=== PATIENT | male | born 1965 | race Caucasian/White ===

== ENCOUNTER 2017-05-28 10:44 | Emergency (ER) | payer OTHER ==
[~2017-05-28] VITALS: Ht 175.3 cm; Wt 62.1 kg
[2017-05-28 10:47] VITALS: Ht 175.3 cm; Wt 62.1 kg
--- NOTE | 2017-05-28 11:17 | EMERGENCY ROOM VISIT NOTE ---
History Report prepared by Yaw: Christine Mike Under the Supervision of: Dr. Theo Nathan M.D. First contact with patient: 10:56 Chief Complaint: LACERATION/CUT (SUT/DERMABOND) Stated Complaint: LACERATION ON HEAD FROM FALL Nursing Triage Summary: pt c/o standing and legs "gave out". Fell and hit back of head. denies loc. 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 Pt states that he got up to go to the bathroom this morning and his legs gave out and he fell back and hit his head. Per security at the [facility], the patient was able to get up and walk after the episode without difficulty. Positive head injury. Negative LOC. 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 A total of ten systems were reviewed and were otherwise negative. Past Medical & Surgical Medical Problems: (1) No Known Active Medical Problems Family History No pertinent family history stated. Social History Smoking Status: Current Every Day Smoker Housing Status: other (usp) Occupation Status: other (usp) Current/Historical Medications Scheduled Trazodone Hcl (Trazodone), 150 MG PO HS Allergies Coded Allergies: Penicillins (Verified Allergy, Unknown, unk, 05/28/17) Physical Exam Vital Signs Date Time Temp Pulse Resp B/P (MAP) Pulse Ox O2 Delivery O2 Flow Rate FiO2 05/28/17 12:38 36.8 63 18 102/72 97 Room Air 05/28/17 10:47 36.7 101 17 120/77 96 Room Air Physical Exam GENERAL: Awake, alert, well-appearing, NAD HENT: 5 lluvia to the posterior scalp, simple laceration. Edentulous. EYES: Normal conjunctiva. Sclera non-icteric. NECK: Supple. No nuchal rigidity. FROM. No midline c-spine TTP. RESPIRATORY: CTAB, no rhonchi, wheezing, crackles CARDIAC: RRR, no MRG ABDOMEN: Soft, NTND, BS+ MSK: No chest wall TTP, no LE edema. No pain to the chest, abdomen, back, or extremities. NEURO: GCS 15, CN 2-12 intact, moves all 4s on command SKIN: No rash or jaundice noted. Medical Decision & Procedures ER Provider Diagnostic Interpretation: Radiology results as stated below per my review and radiologist interpretation: HEAD WITHOUT CONTRAST (CT) Comparison: None. Findings: The paranasal sinuses and mastoid air cells are clear. The calvarium and skull base are intact. The ventricles and sulci are within normal limits. There is no mass, hematoma, midline shift, or acute infarct. Impression: No acute intracranial abnormality. The above report was generated using voice recognition software. It may contain grammatical, syntax or spelling errors. Electronically signed by: Arsalan Raines M.D. 05/28/2017 12:22 PM Dictated Date/Time: 05/28/2017 12:19 PM CERVICAL SPINE W/O FINDINGS: Reversal of the cervical curvature. Evidence for prior fusion of C4-C7. Moderate degenerative disc change throughout. C1-C2 complex is intact. Posterior arch is intact at all levels. There are mild degenerative changes of the posterior facets. IMPRESSION: Postoperative and degenerative change with all findings felt to be nonacute. No acute process of the cervical spine is appreciated. The above report was generated using voice recognition software. It may contain grammatical, syntax or spelling errors. Electronically signed by: Arsalan Raines M.D. 05/28/2017 12:28 PM Dictated Date/Time: 05/28/2017 12:27 PM ECG Indication: other (fall) Rate (beats per minute): 79 Rhythm: normal sinus Findings: T-wave inversion (single isolated in AVL), other (normal intervals normal axis) ED Course 1056: The patient was evaluated in room C3. A complete history and physical exam was performed. 1203: I reevaluated and updated the patient. 1248: I reevaluated the patient. Discussed results and discharge instructions: He verbalized understanding and agreement. The patient is ready for discharge. 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 Differential diagnosis: Etiologies such as fracture, dislocation, intra-abdominal, pneumothorax, intrathoracic , intracranial, neurologic, as well as other traumatic pathologies were entertained. Patient was seen and evaluated the bedside. Patient did have a [facility] in [facility]. Patient denies any syncope. Patient states that he got up and then his knees buckled and he fell to the ground. Patient did strike the posterior aspect of his head. Patient did have a laceration status post repair of the occipital area. Currently hemostatic with 5 lluvia. Patient has no midline C- spine TTP and has a nonfocal neurologic exam. Patient denies any chest pain, shortness of breath, numbness, tingling, or weakness. Given his fall the patient did receive a CT scan of the head and neck. An EKG was also ordered. His patient's fall may be somewhat related to positional changes given that he had just stood up. Patient's EKG was nonischemic. Patient did have a single isolated T wave inversion in aVL. Patient had negative CTs of the head and neck. No acute findings. Patient was deemed suitable for outpatient follow-up and treatment. Patient was returned in the custody of the present officers and the patient was returned long term. Patient was given strict follow-up, discharge, and return precautions. All questions were answered. Patient was deemed suitable for outpatient follow-up at this time. Patient agreed with the plan of care and was safely discharged home. The chart was completed utilizing [employer] voice recognition software. Grammatical errors, random word insertions, pronoun errors, and incomplete sentences are an occasional consequence of this system due to software limitations, ambient noise, and hardware issues. Any formal questions or concerns about the content, text, or information contained within the body of this dictation should be directly addressed to the physician for clarification. Medication Reconcilliation Current Medication List: was personally reviewed by me Blood Pressure Screening Patient's blood pressure: Normal blood pressure Blood pressure disposition: Did not require urgent referral Impression Primary Impression: Fall Additional Impressions: Head injury Laceration of scalp Scribe Attestation The scribe's documentation has been prepared under my direction and personally reviewed by me in its entirety. I confirm that the note above accurately reflects all work, treatment, procedures, and medical decision making performed by me. Departure Information Dispostion Home / Self-Care Referrals Torrey STILES (PCP) Patient Instructions ED Contusion Scalp, ED Wound Care, [facility] Additional Instructions Please return to the emergency department if you have worsening or recurrent symptoms not amenable to at-home treatment. Please call for a follow-up appointment with her primary care physician. Please take your medications as prescribed. If you have other concerns and/or complaints please feel free to also call your primary care physician's office or return the ED for further evaluation, management, and treatment. You may take 600 mg Ibuprofen every 6 hours as needed for pain with food for no more than 2 consecutive days. You may take tylenol 1000 mg every 6 hours as needed for pain. You may take motrin and tylenol separately or at the same time. Take your medications as prescribed. Please consider smoking cessation. You have been examined and treated today on an emergency basis only. This is not a substitute for, or an effort to provide, complete comprehensive medical care. It is impossible to recognize and treat all injuries or illnesses in a single emergency department visit. It is therefore important that you follow up closely with [facility], your PCP, and/or your specialist(s). Call as soon as possible for an appointment. Thank you for your time and consideration. I look forward to speaking with you again soon. Please don't hesitate to call us if you have any questions. Problem Qualifiers Primary Impression: Fall Encounter type: initial encounter Qualified Codes: W19.XXXA - Unspecified fall, initial encounter Additional Impressions: Head injury Encounter type: initial encounter Qualified Codes: S09.90XA - Unspecified injury of head, initial encounter Laceration of scalp Encounter type: initial encounter Qualified Codes: S01.01XA - Laceration without foreign body of scalp, initial encounter
[2017-05-28] MEDS ORDERED: TRAZ50TA35 PO (11:19)
--- NOTE | 2017-05-28 12:23 | DIAGNOSTIC IMAGING REPORT ---
HEAD WITHOUT CONTRAST (CT) CT DOSE: 931.35 mGy.cm HISTORY: s/p fall, occipital lac repair w/ lluvia TECHNIQUE: Multiaxial CT images of the head were performed without the use of intravenous contrast. A dose lowering technique was utilized adhering to the principles of ALARA. Comparison: None. Findings: The paranasal sinuses and mastoid air cells are clear. The calvarium and skull base are intact. The ventricles and sulci are within normal limits. There is no mass, hematoma, midline shift, or acute infarct. Impression: No acute intracranial abnormality. The above report was generated using voice recognition software. It may contain grammatical, syntax or spelling errors. Electronically signed by: Arsalan Raines M.D. 05/28/2017 12:22 PM Dictated Date/Time: 05/28/2017 12:19 PM
--- NOTE | 2017-05-28 12:29 | DIAGNOSTIC IMAGING REPORT ---
CERVICAL SPINE W/O CT DOSE: HISTORY: Trauma. Pain. s/p fall, occipital lac repair w/ lluvia TECHNIQUE: Multiaxial CT images of the cervical spine were performed and reformatted in the sagittal and coronal plane without the use of contrast. A dose lowering technique was utilized adhering to the principles of ALARA. COMPARISON: None. FINDINGS: Reversal of the cervical curvature. Evidence for prior fusion of C4-C7. Moderate degenerative disc change throughout. C1-C2 complex is intact. Posterior arch is intact at all levels. There are mild degenerative changes of the posterior facets. IMPRESSION: Postoperative and degenerative change with all findings felt to be nonacute. No acute process of the cervical spine is appreciated. The above report was generated using voice recognition software. It may contain grammatical, syntax or spelling errors. Electronically signed by: Arsalan Raines M.D. 05/28/2017 12:28 PM Dictated Date/Time: 05/28/2017 12:27 PM
[2017-05-28 12:38] VITALS: BP 102/72; PULSE 63; TEMP 36.8; O2SAT 97
== END 2017-05-28 12:57 ==
LOC: C.EDB 10:48 → C.EDC 12:57
DX: S01.01XA Laceration without foreign body of scalp, initial encounter (principal); W01.198A Fall on same level from slipping, tripping and stumbling with subsequent striking against other object, initial encounter; R40.2412 Glasgow coma scale score 13-15, at arrival to emergency department; R94.31 Abnormal electrocardiogram [ECG] [EKG]; F17.200 Nicotine dependence, unspecified, uncomplicated

== ENCOUNTER 2017-08-10 03:50 | Emergency (ER) | payer OTHER ==
[~2017-08-10] VITALS: Ht 175.3 cm; Wt 60.3 kg
[~2017-08-10 03:50] MED LIST: TRAZ50TA35 PO
[2017-08-10 03:59] VITALS: TEMP 36.4; O2SAT 94; Ht 175.3 cm; Wt 60.3 kg
[2017-08-10 04:18] LABS: BASO % 0.2 %; BASO ABS # 0.01 K/uL (0-0.2); EOS % 1.4 %; EOS ABS # 0.09 K/uL (0-0.5); HEMATOCRIT 37.5 % (42-52); HEMOGLOBIN 13.5 g/dL (14.0-18.0); IG# 0.02 K/uL (0.00-0.02); LYMPH % 9.6 %; LYMPH ABS # 0.62 K/uL (1.2-3.4); MEAN CELL VOLUME 87.4 fL (80-100); MEAN CORPUSCULAR HEMOGLOBIN 31.5 pg (25-34); MEAN PLATELET VOLUME 8.6 fL (7.4-10.4); MONO % 6.2 %; NEUT % 82.3 %; NEUT ABS # 5.34 K/uL (1.4-6.5); PLATELET COUNT 143 K/uL (130-400); RED CELL DISTRIBUTION WIDTH CV 13.8 % (11.5-14.5); RED CELL DISTRIBUTION WIDTH SD 43.7 fL (36.4-46.3); WHITE BLOOD COUNT 6.48 K/uL (4.8-10.8)
[2017-08-10 04:27] LABS: INR 1.1 (0.9-1.1); PTT PATIENT 27.4 SECONDS (21.0-31.0)
[2017-08-10 04:53] LABS: ALBUMIN 3.4 gm/dl (3.4-5.0); ALT/SGPT 41 U/L (12-78); AST/SGOT 49 U/L (15-37); BLOOD UREA NITROGEN 11 mg/dl (7-18); CALCIUM 8.4 mg/dl (8.5-10.1); CARBON DIOXIDE 20 mmol/L (21-32); CREATININE 0.85 mg/dl (0.60-1.40); GLUCOSE 159 mg/dl (70-99); POTASSIUM 3.9 mmol/L (3.5-5.1); SODIUM 129 mmol/L (136-145)
[2017-08-10 05:01] LABS: ALKALINE PHOSPHATASE 90 U/L (45-117); PHOSPHORUS 2.2 mg/dl (2.5-4.9); TOTAL PROTEIN 7.5 gm/dl (6.4-8.2)
--- NOTE | 2017-08-10 05:52 | EMERGENCY ROOM VISIT NOTE ---
History First contact with patient: 03:55 Chief Complaint: SEIZURE Stated Complaint: UNRESPONSIVE EPISODE Nursing Triage Summary: Seizure-like activity tonight after patient was found lying on the floor of his cell. Staff at senior living presumed that patient fell out of bunk, was unresponsive then staff witnessed seizure-like activity per guard report. Patient denies hx of seizures History of Present Illness The patient is a 51 year old male who presents to the Emergency Room with complaints of possible seizure tonight. Patient states all he remembers when he was waking up, EMS was present. Per the correction officers and EMS the patient fell out of bed had a seizure and was incontinent. Patient currently complains of left shoulder pain. No prior history of seizures. No recent alcohol use. He denies drug use. Patient does not drive. Patient denies headache, neck pain, back pain, chest pain, dyspnea, abdominal pain, numbness, tingling, facial pain, dental pain. He describes the pain as aching, ranging in severity 7 out of 10 worse with movement and better with rest to the left shoulder that does not radiate. No prior fracture to the shoulder. Review of Systems An 10 system review of systems was completed with positives and pertinent negatives listed in the HPI. Past Medical/Surgical History Medical Problems: (1) No Known Active Medical Problems Social History Smoking Status: Former Smoker Alcohol Use: other (History of alcoholism) Housing Status: other Occupation Status: other Current/Historical Medications Scheduled Trazodone Hcl (Trazodone), 150 MG PO HS Physical Exam Vital Signs Date Time Temp Pulse Resp B/P (MAP) Pulse Ox O2 Delivery O2 Flow Rate FiO2 08/10/17 04:10 94 Room Air 08/10/17 03:59 36.4 101 18 115/69 94 Room Air 08/10/17 03:59 94 Room Air 08/10/17 03:58 99 Physical Exam VITALS: Vitals are noted on the nurse's note and reviewed by myself. Vital signs stable. GENERAL: Present are in shackles, in no acute distress, nondiaphoretic, well- developed well-nourished. SKIN: The skin was without rashes, erythema, edema, or bruising. There is no tenting of the skin. Capillary reflex less than 2 seconds. HEAD: Normocephalic atraumatic. EARS: External auditory canals clear, tympanic membranes pearly bajwa without erythema or effusion bilaterally. EYES: Pupils equal round and reactive to light and accommodation. Conjunctivae without injection, sclerae without icterus. Extraocular movements intact. NOSE: Patent, turbinates without inflammation or discharge. No sinus tenderness. MOUTH: Mucous membranes moist. Pharynx without erythema or exudate. Uvula midline. Airway patent. Tongue does not deviate. NECK: Supple without nuchal rigidity. No lymphadenopathy. No thyromegaly. Cervical spine is nontender. No JVD. HEART: Regular rate and rhythm without murmurs gallops or rubs. LUNGS: Clear to auscultation bilaterally without wheezes, rales or rhonchi. No retractions or accessory muscle use. ABDOMEN: Positive bowel sounds x 4. Normal tympanic percussion. Soft, nontender, without masses or organomegaly. Rick sign negative. No guarding or rebound tenderness. No CVA tenderness MUSCULOSKELETAL: No muscle atrophy, erythema, or edema noted. Left shoulder edematous with, tender to palpation unable to assess range of motion secondary to pain. No left clavicular pain. No thoracic or lumbar tenderness on exam. All other extremities full range of motion without pain. NEURO: Patient was alert and oriented to person place and time. Normal sensation to light and sharp touch. No focal neurological deficits. Medical Decision & Procedures Laboratory Results 08/10/17 04:07 Red Blood Count 4.29, Mean Corpuscular Volume 87.4, Mean Corpuscular Hemoglobin 31.5, Mean Corpuscular Hemoglobin Concent 36.0, Mean Platelet Volume 8.6, Neutrophils (%) (Auto) 82.3, Lymphocytes (%) (Auto) 9.6, Monocytes (%) (Auto) 6.2, Eosinophils (%) (Auto) 1.4, Basophils (%) (Auto) 0.2, Neutrophils # (Auto) 5.34, Lymphocytes # (Auto) 0.62, Monocytes # (Auto) 0.40, Eosinophils # (Auto) 0.09, Basophils # (Auto) 0.01 08/10/17 04:07 Test 08/10/17 04:07 08/10/17 04:11 08/10/17 05:07 White Blood Count 6.48 K/uL (4.8-10.8) Red Blood Count 4.29 M/uL (4.7-6.1) Hemoglobin 13.5 g/dL (14.0-18.0) Hematocrit 37.5 % (42-52) Mean Corpuscular Volume 87.4 fL (80-100) Mean Corpuscular Hemoglobin 31.5 pg (25-34) Mean Corpuscular Hemoglobin Concent 36.0 g/dl (32-36) Platelet Count 143 K/uL (130-400) Mean Platelet Volume 8.6 fL (7.4-10.4) Neutrophils (%) (Auto) 82.3 % Lymphocytes (%) (Auto) 9.6 % Monocytes (%) (Auto) 6.2 % Eosinophils (%) (Auto) 1.4 % Basophils (%) (Auto) 0.2 % Neutrophils # (Auto) 5.34 K/uL (1.4-6.5) Lymphocytes # (Auto) 0.62 K/uL (1.2-3.4) Monocytes # (Auto) 0.40 K/uL (0.11-0.59) Eosinophils # (Auto) 0.09 K/uL (0-0.5) Basophils # (Auto) 0.01 K/uL (0-0.2) RDW Standard Deviation 43.7 fL (36.4-46.3) RDW Coefficient of Variation 13.8 % (11.5-14.5) Immature Granulocyte % (Auto) 0.3 % Immature Granulocyte # (Auto) 0.02 K/uL (0.00-0.02) Prothrombin Time 11.1 SECONDS (9.0-12.0) Prothromb Time International Ratio 1.1 (0.9-1.1) Activated Partial Thromboplast Time 27.4 SECONDS (21.0-31.0) Partial Thromboplastin Ratio 1.1 Anion Gap 11.0 mmol/L (3-11) Est Creatinine Clear Calc Drug Dose 85.7 ml/min Estimated GFR () 115.3 Estimated GFR (Non- 99.5 BUN/Creatinine Ratio 12.7 (10-20) Calcium Level 8.4 mg/dl (8.5-10.1) Phosphorus Level 2.2 mg/dl (2.5-4.9) Magnesium Level 2.0 mg/dl (1.8-2.4) Total Bilirubin 0.6 mg/dl (0.2-1) Direct Bilirubin 0.2 mg/dl (0-0.2) Aspartate Amino Transf (AST/SGOT) 49 U/L (15-37) Alanine Aminotransferase (ALT/SGPT) 41 U/L (12-78) Alkaline Phosphatase 90 U/L (45-117) Total Creatine Kinase 333 U/L (39-308) Troponin I < 0.015 ng/ml (0-0.045) Total Protein 7.5 gm/dl (6.4-8.2) Albumin 3.4 gm/dl (3.4-5.0) Thyroid Stimulating Hormone (TSH) 1.430 uIu/ml (0.300-4.500) Bedside Troponin I < 0.030 ng/ml (0-0.045) Urine Color DK YELLOW Urine Appearance CLOUDY (CLEAR) Urine pH 5.0 (4.5-7.5) Urine Specific [place] 1.020 (1.000-1.030) Urine Protein TRACE (NEG) Urine Glucose (UA) NEG (NEG) Urine Ketones TRACE (NEG) Urine Occult Blood NEG (NEG) Urine Nitrite NEG (NEG) Urine Bilirubin NEG (NEG) Urine Urobilinogen NEG (NEG) Urine Leukocyte Esterase NEG (NEG) Urine WBC (Auto) 1-5 /hpf (0-5) Urine RBC (Auto) 0-4 /hpf (0-4) Urine Hyaline Casts (Auto) 1-5 /lpf (0-5) Urine Epithelial Cells (Auto) 5-10 /lpf (0-5) Urine Bacteria (Auto) NEG (NEG) Urine Opiates Screen NEG (NEG) Urine Methadone, Qualitative NEG (NEG) Urine Barbiturates NEG (NEG) Urine Phencyclidine (PCP) Level NEG (NEG) Ur Amphetamine/Methamphetamine NEG (NEG) MDMA (Ecstasy) Screen POS (NEG) Urine Benzodiazepines Screen NEG (NEG) Urine Cocaine Metabolite NEG (NEG) Urine Marijuana (THC) NEG (NEG) ED Course Prior records/ancillary studies reviewed. Patient placed in seizure precautions immediately upon arrival. Nursing notes reviewed. Additional history obtained from EMS and correction officers The patient's history was concerning for a possible seizure. Differential diagnosis: Etiologies such as infection, hypoglycemia, electrolyte abnormalities, cardiac sources, intracerebral event, trauma, toxicologic, neurologic, as well as others were entertained. Physical examination: As above. Shoulder injury noted ER treatment provided: Sling the left shoulder On reassessment the patient felt better. Diagnostics interpretation by me: ECG: Normal sinus, normal intervals, no acute ST-T wave changes, rate of 97. Impression normal sinus rhythm interpreted by myself The labs revealed hyponatremia. Hyperglycemia without DKA. Drug screen positive for ecstasy and patient was informed of this and admitted to doing this tonight Imaging studies: Head CT negative for intracranial bleed or fracture Left shoulder x-ray concerning for fracture per my interpretation. Sling was placed and neurovascular status was rechecked after placement is intact. Exam and history seem consistent with seizure most likely from drug abuse. Patient was strongly encouraged to avoid illegal drugs in the future. Patient also has a left shoulder fracture. Sling was placed and neurovascular status was rechecked after placement and is intact. They are advised to follow-up with orthopedics for this. Patient was advised to follow with the half-way doctor for further evaluation for his seizure episode tonight and drug abuse and for repeat testing for his glucose and sodium that are off tonight. Patient was neurovascularly and neurologically intact. No other injuries noted. He was well-appearing. He was advised to return to the ER mediate for seizures, pain, worsening signs or symptoms or as needed. The patient was counseled not to drive until cleared in follow-up and seizure precautions given. I gave my usual and customary discussion regarding these issues. Patient is incarcerated and cannot drive. The pt informed about the findings as listed above. All questions were answered and pleased with the treatment. Return instructions were outlined and the patient was discharged in stable condition. Referral: The patient was referred back to their half-way doctor and orthopedics for follow- up in 2 to 3 days for a recheck of the current condition. Case reviewed with my attending The chart was completed utilizing [employer] voice recognition software. Grammatical errors, random word insertions, pronoun errors, and incomplete sentences are an occassional consequence of this system due to software limitations, ambient noise, and hardware issues. Any formal questions or concerns about the content, text, or information contained within the body of this dictation should be directly addressed to the physician equal opportunity assistant for clarification. Medical Decision As above Head Trauma GCS Score: 15 Medication Reconcilliation Current Medication List: was personally reviewed by me Blood Pressure Screening Patient's blood pressure: Normal blood pressure Impression Primary Impression: Seizure Additional Impressions: Shoulder fracture, left Hyponatremia Hyperglycemia Anemia Drug abuse Departure Information Dispostion Home / Self-Care Condition GOOD Referrals [facility], [facility] (PCP) Patient Instructions My [facility] Additional Instructions Shoulder injury: DO NOT drive, drink alcohol, operate machinery, or perform dangerous activities today. You were given medications in the ER that can affect your ability to safely function or operate a vehicle. Ibuprofen(Motrin, Advil) may be used for fever or pain. Use 600mg every six hours as needed. Take with food. Avoid using more than 2400mg in a 24 hour period. Do not use 2400mg per day for more than three consecutive days without physician direction. Prolonged inappropriate use can lead to stomach upset or ulcers. This medication can be taken if you need to drive, work, or perform activities which may be dangerous when taking narcotic pain medication. (AND/OR) Acetaminophen(Tylenol) may be used for fever or pain. Use 1000mg every six hours as needed. Avoid using more than 3000mg in a 24 hour period. This medication can be taken if you need to drive, work, or perform activities which may be dangerous when taking narcotic pain medication. Ice compresses for 20 minutes at a time four times daily for 2-3 days. Use the sling as instructed. Remove your arm from the sling 4-6 times a day and move all the joints around to keep them loose. Rest and elevate your injury. Continue current medications. Return to the ER immediately for any numbness, tingling, severe pain, extreme swelling in the extremity or as needed. Call Orthopedics tomorrow to arrange follow up for your injury. Seizure/head injury: Recommend no illegal drugs. This most likely caused your seizure tonight. Your sodium and glucose were slightly abnormal today. Repeat this with your half-way doctor. Follow-up with the half-way doctor for further evaluation and treatment for your head injury and seizure tonight. Return to ER sooner for seizures, headaches, confusion, worsening signs or symptoms or as needed. Problem Qualifiers
[2017-08-10 05:56] VITALS: BP 108/72; PULSE 72; O2SAT 94
--- NOTE | 2017-08-10 06:34 | DIAGNOSTIC IMAGING REPORT ---
CT HEAD WITHOUT CONTRAST (CT) CLINICAL HISTORY: Head trauma. Seizure. COMPARISON STUDY: May 28, 2017 TECHNIQUE: Axial CT of the brain is performed from the vertex to the skull base. IV contrast was not administered for this examination. A dose lowering technique was utilized adhering to the principles of ALARA. CT DOSE: 638.56 mGycm FINDINGS: No intra or extra-axial mass lesions are visualized. There is no CT evidence of acute cortical infarction. There is no evidence of midline shift. There is no acute hemorrhage. No calvarial fractures are visualized. There is no evidence of pathologic ventricular dilatation. There is no evidence of acute sinusitis IMPRESSION: No acute intracranial findings Electronically signed by: Petros Chavez M.D. 08/10/2017 6:33 AM Dictated Date/Time: 08/10/2017 6:32 AM
--- NOTE | 2017-08-10 07:17 | DIAGNOSTIC IMAGING REPORT ---
L SHOULDER MIN 2 VIEWS ROUTINE CLINICAL HISTORY: Left shoulder pain status post trauma COMPARISON: None. DISCUSSION: There is an acute mild comminuted fracture involving the greater tuberosity. There is 9 mm of maximal fracture fragment distraction. There is no dislocation. There is an old left seventh rib fracture. IMPRESSION: Acute proximal humeral fracture involving the greater tuberosity. No evidence of dislocation Electronically signed by: Petros Chavez M.D. 08/10/2017 7:15 AM Dictated Date/Time: 08/10/2017 7:14 AM
== END 2017-08-10 05:56 | disposition home or self-care (01) ==
LOC: EDBD 03:50 → C.EDB 03:51
DX: R56.9 Unspecified convulsions (principal); S42.202A Unspecified fracture of upper end of left humerus, initial encounter for closed fracture; W19.XXXA Unspecified fall, initial encounter; Y92.143 Cell of prison as the place of occurrence of the external cause; E87.1 Hypo-osmolality and hyponatremia; R73.9 Hyperglycemia, unspecified; D64.9 Anemia, unspecified; F19.10 Other psychoactive substance abuse, uncomplicated; Z87.891 Personal history of nicotine dependence; Z79.899 Other long term (current) drug therapy